=== PATIENT | female | born 1965 ===

== ENCOUNTER 2019-01-26 07:48 | Day surgery (SDC) | payer MEDICARE, MEDICAID ==
[2019-01-26 08:11] VITALS: BMI 50.3
[2019-01-26] MEDS ORDERED: Lactated Ringer's 500 ML IV ONE (08:21)
[2019-01-26 08:31] VITALS: O2SAT 97
[2019-01-26] MEDS ORDERED: Propofol 10 mg/ml Inj (20 ML) ONE (09:10)
[2019-01-26 09:48] VITALS: PULSE 81; TEMP 98.4
[2019-01-26 10:06] VITALS: BP 102/69; RESP 18
== END 2019-01-26 12:17 | disposition home or self-care (01) ==
LOC: H.ENDO 07:48
PROVIDERS: ATTEND Internal Medicine Gastroenterology
DX: Z12.11 Encounter for screening for malignant neoplasm of colon (principal); K64.1 Second degree hemorrhoids; K57.30 Diverticulosis of large intestine without perforation or abscess without bleeding; E11.9 Type 2 diabetes mellitus without complications; I10 Essential (primary) hypertension; F41.9 Anxiety disorder, unspecified
CPT/HCPCS: 82948; G0121; J2704; J7120